=== PATIENT | female | born 1970 ===

== ENCOUNTER → 2024-08-02 12:14 | Outpatient (REF) | payer BC, SELFPAY | LOC: WDC 12:14 | PROVIDERS: ATTENDING PHYSICIAN Student in an Organized Health Care Education/Training Program | DX: Z12.31 Encounter for screening mammogram for malignant neoplasm of breast (principal) | CPT/HCPCS: 77063; 77067 ==

== ENCOUNTER 2024-08-18 17:03 | Emergency (ER) | payer BC, SELFPAY ==
[2024-08-18 17:05] VITALS: BP 113/81
[2024-08-18 17:28] VITALS: BMI 25.8
[2024-08-18] MEDS: RABAVERT RABIES VACC W-DILUENT 2.5 UNIT IM (18:29)
[2024-08-18] MEDS: HyperRAB 1160 UNIT IM (18:29)
[2024-08-18 18:45] VITALS: BP 127/88
--- NOTE | 2024-08-18 19:20 | ED.GENMED ---
History of Present Illness
General
Chief Complaint: Rabies
Source: patient
Exam Limitations: none
Time Seen by Provider: 08/18/24 17:11
Nursing documentation reviewed up to this point in time: agreed with
History of Present Illness
History of Present Illness:
Patient to ED for rabies series. States she was in [place] 1 week ago and a wild raccoon jumped out and landed on her arm. SHe sustained a deep abrasion to left volar forearm. Brought to ED by daughter for rabies series.
Past History
Past History
ED Past Medical History: Hypercholesterolemia and Other ('Clotting disorder')
ED Past Surgical History: Gynecological
Social History
Tobacco: Non-smoker
Personal:
Living: with family
Review of Systems
Review of Systems
Allergies reviewed?: Yes
All Other Systems: ROS reviewed and negative except as documented in HPI and ROS
Constitutional: Reports no symptoms
Musculoskeletal: Reports no symptoms
Skin: Reports other (healed wound to left volar forearm)
Neurological: Reports no symptoms
Psychiatric: Reports no symptoms
Phy Exam
General Physical Exam
General Presentation: well appearing and no apparent distress
General age: appears stated age
General Skin: warm and dry
General Habitus: normal
General Mental: alert
General Hydration: appears well hydrated
Musculoskeletal Exam
Musculoskeletal Exam: full ROM and neuro vasc intact
Skin Exam
Skin Exam: normal color, warm/dry, no rash and other (Healed deep abrasion left volar forearm)
Psychiatric Exam
Psychiatric Exam: normal mood/affect
Course
Orders/Labs/Results
Orders:
Orders
08/18/24 17:45
Rabies Vaccine (Pcec)/Pf [Rabavert Rabies Vacc W-Diluent] 2.5 unit IM .ONCE ONE
08/18/24 18:02
Rabies Immune Globulin/Pf [HyperRAB] 1,160 unit IM NOW STA
Vital Signs
Initial and Last Documented VS:
Initial Vital Signs
Pulse Resp BP Pulse Ox
82 18 113/81 96
08/18/24 17:05 08/18/24 17:05 08/18/24 17:05 08/18/24 17:05
Last Documented Vital Signs
Pulse Resp BP Pulse Ox
79 18 127/88 100
08/18/24 18:45 08/18/24 18:45 08/18/24 18:45 08/18/24 18:45
*Critical Care Note
Total Time (30-74mins, 75-104mins- exclusive of procedures): Not Applicable
ED Attending Note
-
Portions of this chart may have been created with voice recognition software.� Occasional wrong word or��sound alike� substitutions may have occurred due to the inherent limitations of voice recognition software.
Discharge Plan
Departure
Patient Disposition: Home (Routine Discharge)
Date of Disposition: 08/18/24
Time of Disposition: 17:41
Patient with high blood pressure during this ER visit?: No
Condition: Good
Covid-19: Not Applicable
Discharge Problem:
Exposure to rabies
Prescriptions:
New
RabAvert (PF) 2.5 unit Suspension For Reconstitution
1 ml IM . DIRECTED Qty: 3 0RF
Rx Instructions:
See Rabies Vaccine Post Exposure Prophylaxis Instruction Sheet for Dosing Instructions
No Action
ascorbic acid (vitamin C) [Vitamin C] 1,000 MG tablet
1,000 mg PO DAILY
Vitamin D
2 drp PO DAILY
Patient Comments:
pt unsure the doseage
meclizine 25 MG tablet
25 mg PO Q8 PRN (Reason: Nausea) Qty: 15 0RF
ondansetron 4 MG tablet,disintegrating
4 mg PO TIDPRN PRN (Reason: Nausea) Qty: 15 0RF
prednisone 10 MG tablets,dose pack
10 mg PO Daily Qty: 1 0RF
Rx Instructions:
60mg days 1-5, 40mg day 6, 30mg day 7, 20mg day 8, 10mg day 9, 5mg day 10
Stand Alone Forms: Rabies Vaccine Post Exp Dosing
Interventions
Interventions:
*Risk Screen - Suicide Last Done: 08/18/24 17:05
*General Assessment Last Done: 08/18/24 17:05
*Neglect/Abuse Screening Last Done: 08/18/24 17:05
*Nursing Disposition Last Done: 08/18/24 18:46
Discharge Date and Time
Discharge Date/Time: 08/18/24 18:46
Print Language: ARABIC
Skin Exam
Abrasion
Left Volar Arm:
Description of abrasion: deep/clean
== END 2024-08-18 18:46 | disposition home or self-care (01) ==
LOC: EMR 17:03
PROVIDERS: EMERGENCY PHYSICIAN Emergency Medicine; FAMILY PHYSICIAN Internal Medicine
DX: Z20.3 Contact with and (suspected) exposure to rabies (principal); Z23 Encounter for immunization; Z29.14 Encounter for prophylactic rabies immune globulin; S50.812A Abrasion of left forearm, initial encounter; X58.XXXA Exposure to other specified factors, initial encounter; E78.00 Pure hypercholesterolemia, unspecified
CPT/HCPCS: 99282; 90471; 96372; 90375; 90675

== ENCOUNTER 2024-08-21 09:21 | Outpatient (RCR) | payer BC, SELFPAY ==
[2024-08-21 09:30] VITALS: BP 120/79
[2024-08-21] MEDS: RABAVERT RABIES VACC W-DILUENT 2.5 UNIT IM (09:40)
== END 2024-08-23 08:23 | disposition home or self-care (01) ==
LOC: OID 09:21
PROVIDERS: ATTENDING PHYSICIAN Emergency Medicine; FAMILY PHYSICIAN Internal Medicine
DX: Z20.3 Contact with and (suspected) exposure to rabies (principal); Z23 Encounter for immunization
CPT/HCPCS: 90471; 90675

== ENCOUNTER 2024-09-02 13:08 | Outpatient (RCR) | payer BC, SELFPAY ==
[2024-08-26 13:10] VITALS: BP 119/81
[2024-08-26] MEDS: RABAVERT RABIES VACC W-DILUENT 2.5 UNIT IM (13:17)
[2024-09-02 13:14] VITALS: BP 115/78
[2024-09-02] MEDS: RABAVERT RABIES VACC W-DILUENT 2.5 UNIT IM (13:20)
== END 2024-09-24 23:59 | disposition home or self-care (01) ==
LOC: OID 13:08
PROVIDERS: ATTENDING PHYSICIAN Emergency Medicine; FAMILY PHYSICIAN Internal Medicine
DX: Z20.3 Contact with and (suspected) exposure to rabies (principal); Z23 Encounter for immunization
CPT/HCPCS: 90471; 90675

== ENCOUNTER → 2024-09-17 10:57 | Outpatient (REF) | payer BC, SELFPAY | LOC: HWRAD 10:57 | PROVIDERS: ATTENDING PHYSICIAN Physician Assistant; FAMILY PHYSICIAN Internal Medicine | DX: N28.89 Other specified disorders of kidney and ureter (principal); N20.0 Calculus of kidney | CPT/HCPCS: 76775 ==

== ENCOUNTER → 2025-08-25 09:52 | Outpatient (REF) | payer BC, SELFPAY | LOC: HWWDC 09:52 | PROVIDERS: ATTENDING PHYSICIAN Student in an Organized Health Care Education/Training Program; FAMILY PHYSICIAN Internal Medicine | DX: Z12.31 Encounter for screening mammogram for malignant neoplasm of breast (principal) | CPT/HCPCS: 77063; 77067 ==